=== PATIENT | female | born 1995 | race Caucasian/White ===

== ENCOUNTER 2020-03-07 21:46 | Emergency (ER) | payer OTHER ==
[~2020-03-07 21:46] MED LIST: BENTYL 20MG TAB20 MG PO; CIPRO500 MG PO; COLACE 100MG C100 MG PO; FLAGYL500 MG PO; ZOFRAN4 MG PO
[2020-03-08] MEDS ORDERED: BACTRIM DS TAB1 EACH PO (00:38)
[2020-03-08] MEDS ORDERED: IBUPROFEN800 MG PO (00:38)
[2020-03-08] MEDS ORDERED: DIFLUCAN150 MG PO (00:38)
[2020-03-08] MEDS ORDERED: KEFLEX CAP 500500 MG PO (00:38)
== END 2020-03-08 00:52 | disposition home or self-care (01) ==
LOC: ER1 21:46
DX: N61.1 Abscess of the breast and nipple (principal); E07.9 Disorder of thyroid, unspecified; F17.290 Nicotine dependence, other tobacco product, uncomplicated; Z79.899 Other long term (current) drug therapy; Z88.0 Allergy status to penicillin
CPT/HCPCS: 19020; 99282

== ENCOUNTER → 2020-11-06 | Outpatient (CLI) | payer OTHER ==
[~2020-11-06] MED LIST changes: +BACTRIM DS TAB1 EACH PO; +DIFLUCAN150 MG PO; +IBUPROFEN800 MG PO; +KEFLEX CAP 500500 MG PO
== END ==
LOC: KOH-I 08:52
DX: S92.342D Displaced fracture of fourth metatarsal bone, left foot, subsequent encounter for fracture with routine healing (principal); S92.352D Displaced fracture of fifth metatarsal bone, left foot, subsequent encounter for fracture with routine healing
CPT/HCPCS: 73630

== ENCOUNTER → 2020-12-06 | Outpatient (CLI) | payer OTHER | LOC: KOH-I 09:03 | DX: S92.342D Displaced fracture of fourth metatarsal bone, left foot, subsequent encounter for fracture with routine healing (principal); S92.352D Displaced fracture of fifth metatarsal bone, left foot, subsequent encounter for fracture with routine healing | CPT/HCPCS: 73630 ==

== ENCOUNTER → 2021-01-15 | Outpatient (CLI) | payer OTHER | LOC: KOH-I 09:06 | DX: S92.342D Displaced fracture of fourth metatarsal bone, left foot, subsequent encounter for fracture with routine healing (principal); S92.352D Displaced fracture of fifth metatarsal bone, left foot, subsequent encounter for fracture with routine healing | CPT/HCPCS: 73630 ==

== ENCOUNTER → 2021-03-14 | Outpatient (CLI) | payer OTHER | LOC: KOH-I 10:22 | DX: S92.351A Displaced fracture of fifth metatarsal bone, right foot, initial encounter for closed fracture (principal) | CPT/HCPCS: 73630 ==

== ENCOUNTER → 2021-04-04 | Outpatient (CLI) | payer OTHER | LOC: KOH-I 08:50 | DX: S92.511A Displaced fracture of proximal phalanx of right lesser toe(s), initial encounter for closed fracture (principal) | CPT/HCPCS: 73630 ==

== ENCOUNTER → 2021-07-04 | Outpatient (CLI) | payer OTHER | LOC: KOH-I 09:59 | DX: M79.671 Pain in right foot (principal); S92.504A Nondisplaced unspecified fracture of right lesser toe(s), initial encounter for closed fracture; X58.XXXA Exposure to other specified factors, initial encounter | CPT/HCPCS: 73630 ==